=== PATIENT | female | born 2000 | race Two or more races ===

== ENCOUNTER 2018-10-25 12:06 | Emergency (ER) | payer MEDICAID ==
[~2018-10-25] VITALS: Ht 160 cm; Wt 63.6 kg
[2018-10-25] MEDS ORDERED: TETanus/Pertussis (Acell)/Diphther VAC/PF (Tdap-Adult) 0.5ml syringe IM ONE (13:15)
[2018-10-25] MEDS ORDERED: LIDOcaine 1% w/epiNEPHrine 1:200,000 30ml vial IM ONE (13:15)
[2018-10-25] MEDS ORDERED: CEPH-571 PO (14:01)
[2018-10-25 14:08] VITALS: BP 120/84
== END 2018-10-25 14:11 | disposition home or self-care (01) ==
LOC: ER 12:07
DX: L02.31 Cutaneous abscess of buttock (principal); Z79.2 Long term (current) use of antibiotics
CPT/HCPCS: 10060; 90471; 90715; 99283; J3490

== ENCOUNTER 2019-06-22 01:57 | Emergency (ER) | payer MEDICAID ==
[~2019-06-22] VITALS: Ht 162.6 cm; Wt 72.0 kg
[~2019-06-22 01:57] MED LIST: CEPH-571 PO
[2019-06-22 02:04] VITALS: BP 136/72
[2019-06-22] MEDS ORDERED: diphenhydrAMINE 25mg capsule PO ONE (02:15)
[2019-06-22] MEDS ORDERED: acetaminophen 325mg tablet PO ONE (02:15)
== END 2019-06-22 02:26 | disposition home or self-care (01) ==
LOC: ER 01:58
DX: O26.893 Other specified pregnancy related conditions, third trimester (principal); R51 Headache; R09.81 Nasal congestion; R05 Cough; Z79.899 Other long term (current) drug therapy; Z3A.00 Weeks of gestation of pregnancy not specified
CPT/HCPCS: 99283; Q0163

== ENCOUNTER 2021-03-16 10:21 | Emergency (ER) | payer OTHER, MEDICAID ==
[~2021-03-16] VITALS: Ht 162.6 cm; Wt 70.5 kg
[~2021-03-16 10:21] MED LIST changes: +LIDOcaine 1% W/epiNEPHrine 1:100,000 20ml vial ONE
[2021-03-16 10:45] VITALS: BP 107/78
[2021-03-16] MEDS ORDERED: HYDROcodone/acetaminophen 5mg/325mg tablet PO ONE (10:50)
[2021-03-16] MEDS ORDERED: TETanus/Pertussis (Acell)/Diphther VAC/PF (Tdap-Adult) 0.5ml syringe IMVAC ONE (10:50)
[2021-03-16] MEDS ORDERED: LIDOcaine 1.5% w/epinephrine 1:200,000 5ml ampul IJ ONE (10:50)
== END 2021-03-16 12:36 | disposition home or self-care (01) ==
LOC: ER 10:22
DX: S81.811A Laceration without foreign body, right lower leg, initial encounter (principal); Z79.2 Long term (current) use of antibiotics; X58.XXXA Exposure to other specified factors, initial encounter; Y93.89 Activity, other specified; Y92.89 Other specified places as the place of occurrence of the external cause; Y99.8 Other external cause status
CPT/HCPCS: 12002; 73590; 73610; 90471; 90715; 99284

== ENCOUNTER 2021-05-12 18:09 | Emergency (ER) | payer MEDICAID, OTHER ==
[~2021-05-12] VITALS: Ht 162.6 cm; Wt 63.6 kg
[~2021-05-12 18:09] MED LIST changes: -LIDOcaine 1% W/epiNEPHrine 1:100,000 20ml vial ONE
[2021-05-12 18:11] VITALS: BP 148/76
== END 2021-05-12 21:27 | disposition left against medical advice (07) ==
LOC: ER 18:10
DX: S61.211A Laceration without foreign body of left index finger without damage to nail, initial encounter (principal); Z53.21 Procedure and treatment not carried out due to patient leaving prior to being seen by health care provider; X58.XXXA Exposure to other specified factors, initial encounter; Y93.9 Activity, unspecified; Y92.9 Unspecified place or not applicable; Y99.9 Unspecified external cause status

== ENCOUNTER 2021-11-04 19:13 | Emergency (ER) | payer MEDICAID ==
[~2021-11-04] VITALS: Ht 162.6 cm; Wt 68.2 kg
[2021-11-04 19:15] VITALS: BP 117/67
[2021-11-04] MEDS ORDERED: dexamethasone sod phosphate 10mg/ml inj PO STA (19:31)
[2021-11-04] MEDS ORDERED: amoxicillin 250mg capsule PO ONE (19:35)
[2021-11-04] MEDS ORDERED: ibuprofen 200mg tablet PO ONE (19:35)
[2021-11-04] MEDS ORDERED: ibuprofen tablet 400 MG TABLET PO ONE (19:35)
[2021-11-04] MEDS ORDERED: AMOX-101 PO (19:39)
== END 2021-11-04 20:10 | disposition home or self-care (01) ==
LOC: ER 19:14
DX: J02.9 Acute pharyngitis, unspecified (principal); M54.2 Cervicalgia; Z79.899 Other long term (current) drug therapy
CPT/HCPCS: 99284; J1100

== ENCOUNTER 2023-01-12 16:43 | Emergency (ER) | payer MEDICAID ==
[~2023-01-12] VITALS: Ht 162.6 cm; Wt 68.2 kg
[2023-01-12 17:26] LABS: ALANINE AMINOTRANSFERASE 17 U/L (12-78); ALBUMIN 3.5 G/DL (3.4-5.0); ALBUMIN/GLOBULIN RATIO 0.9 (1.1-1.5); ALKALINE PHOSPHATASE 57 IU/L (46-116); ANION GAP 12 (8-16); ASPARTATE AMINO TRANSFERASE 16 U/L (10-37); BILIRUBIN,TOTAL 0.2 MG/DL (0.1-1.0); BLOOD UREA NITROGEN 10 MG/DL (7-18); BUN/CREATININE RATIO 13.7 (10.0-20.0); CALCIUM 8.9 MG/DL (8.5-10.1); CHLORIDE 104 MMOL/L (99-107); CREATININE 0.73 MG/DL (0.40-0.90); GLUCOSE 95 MG/DL (70-104); POTASSIUM 3.5 MMOL/L (3.5-5.1); SODIUM 139 MMOL/L (135-145); TOTAL CARBON DIOXIDE 23.5 MMOL/L (24-32); TOTAL PROTEIN 7.3 G/DL (6.4-8.2); eGFR > 90 ML/MIN
[2023-01-12 17:35] LABS: CLARITY,URINE CLEAR (Clear); COLOR,URINE YELLOW (Yellow); GLUCOSE, URINE NEGATIVE (Neg); KETONES,URINE NEGATIVE (Neg); LEUKOCYTE ESTERASE ,URINE NEGATIVE (Neg); NITRITES, URINE NEGATIVE (Neg); OCCULT BLOOD,URINE NEGATIVE (Neg); PROTEIN,URINE NEGATIVE (Neg); UROBILINOGEN,URINE 0.2 E.U/dL (0.2-1.0)
[2023-01-12 17:36] LABS: UA COLLECTION TYPE CLN CATCH MIDSTREAM; URINE HCG POSITIVE (NEG)
--- NOTE | 2023-01-12 17:38 | NUR ---
Received patient to OF bed #22. Pt ambulated independently to bed. Pt is A&Ox4. Pt denies SI/HI, A/VH. Pt reports her parents live with her and the situation is based on "a lot of frustration." Pt reports her father can be threatening when the argue. Pt also reports that if her parents didn't live with her they would be homeless. Pt has superficial lacerations on left anterior forarm. Reports she has never self harmed before this.
[2023-01-12 17:52] LABS: URINE AMPHETAMINE SCREEN POSITIVE (Neg); URINE BARBITUATE SCREEN NEGATIVE (Neg); URINE BENZODIAZEPINES SCREEN NEGATIVE (Neg); URINE CANNABINOID SCREEN NEGATIVE (Neg); URINE COCAINE SCREEN NEGATIVE (Neg); URINE METHADONE SCREEN NEGATIVE (Neg); URINE OPIATE SCREEN NEGATIVE (Neg); URINE PHENCYCLIDINE SCREEN NEGATIVE (Neg)
--- NOTE | 2023-01-12 17:57 | NUR ---
pt requested a shower, tech informed pt there is no shower, tech offered pt baby wipes and asked pt to change into green scrubs, pt in the bathroom.
--- NOTE | 2023-01-12 18:57 | NUR ---
One to one with the patient and made her aware of the plan for 5150 assessment by [facility] in the AM. Discussed with the patient the positive Amphetamine use and she stated that she had used on the weekend. She was made aware that her test was positive. She reports last menstural period was possibly in September. She is aware that a [employer]PS report would have to be filed. She was tearful and stated that her children meant everything to her. She denies a history of mental health issues and denies that she is suicidal and stated that she wants to live for her kids. She is very cooperative.
[2023-01-12] MEDS ORDERED: NO HOME MEDS (19:08)
[2023-01-12 19:31] LABS: WHITE BLOOD COUNT 7.2 X10'3 (4.5-11.0)
[2023-01-12 19:32] LABS: BASOPHILS % (AUTO) 0.6 % (0-1); EOSINOPHILS # (AUTO) 0.2 X10'3 (0-0.9); EOSINOPHILS % (AUTO) 3.4 % (0-6); HEMATOCRIT 37.7 % (35.0-45.0); HEMOGLOBIN 12.4 g/dl (12.0-16.0); LYMPHOCYTES % (AUTO) 28.3 % (21-51); MEAN CORPUSCULAR HEMOGLOBIN 25.9 PG (27.0-31.0); MEAN CORPUSCULAR VOLUME 78.4 FL (78-98); MEAN PLATELET VOLUME 7.9 FL (7.4-10.4); MONOCYTES # (AUTO) 0.5 X10'3 (0-0.9); MONOCYTES % (AUTO) 7.2 % (2-12); NEUTROPHILS # (AUTO) 4.4 X10'3 (1.8-7.7); NEUTROPHILS % (AUTO) 60.5 % (42-75); PLATELET COUNT 311 X10'3 (140-440)
--- NOTE | 2023-01-12 20:25 | NUR ---
The patient appears to be sleeping
--- NOTE | 2023-01-12 21:00 | NUR ---
PACKET FAXED TO [facility]
--- NOTE | 2023-01-12 21:14 | NUR ---
Report filled with [employer] regarding positive amphetamine and positive test
--- NOTE | 2023-01-12 23:14 | NUR ---
The patient appears to be sleeping
--- NOTE | 2023-01-13 01:18 | NUR ---
The patient appears to be sleeping
--- NOTE | 2023-01-13 03:02 | NUR ---
The patient appears to be sleeping
--- NOTE | 2023-01-13 05:10 | NUR ---
The patient appeared to have slept well during the night
--- NOTE | 2023-01-13 06:26 | NUR ---
The patient appears to be sleeping
--- NOTE | 2023-01-13 08:14 | NUR ---
The patient sitting up and eating breakfast.
--- NOTE | 2023-01-13 08:53 | NUR ---
[facility] at the bedside assessing the patient.
[2023-01-13 09:41] VITALS: BP 118/82
--- NOTE | 2023-01-15 11:25 | NUR ---
Received order for consult. Patient discharged. I called to follow up with patient. Patient is interested in resources for substance use. Patient would like outpatient resources. I gave patient [facility] information and talked to her about [facility] outpatient program. Patient has my number to call me with any questions.
== END 2023-01-13 09:47 | disposition home or self-care (01) ==
LOC: ER 16:44
DX: Z34.90 Encounter for supervision of normal pregnancy, unspecified, unspecified trimester (principal); Z20.822 Contact with and (suspected) exposure to COVID-19; R45.88 Nonsuicidal self-harm; F15.20 Other stimulant dependence, uncomplicated
CPT/HCPCS: 36415; 80053; 80305; 81003; 81025; 84443; 85025; 87811; 99285

== ENCOUNTER 2023-09-07 12:14 | Emergency (ER) | payer MEDICAID ==
[~2023-09-07] VITALS: Ht 162.6 cm; Wt 86.4 kg
[~2023-09-07 12:14] MED LIST changes: -CEPH-571 PO; +NO HOME MEDS
[2023-09-07 12:19] VITALS: BP 115/63; PULSE 91; RESP 18; TEMP 97.9; O2SAT 97
[2023-09-07] MEDS: dexamethasone sod phosphate 10mg/ml inj PO STA (13:38)
[2023-09-07 13:59] LABS: STREP A SCREEN NEGATIVE (Neg)
[2023-09-07] MEDS ORDERED: DIPH-518 PO (14:13)
[2023-09-07] MEDS ORDERED: LIDO20SO16 PO (14:13)
== END 2023-09-07 14:19 | disposition home or self-care (01) ==
LOC: ER 12:14
DX: B08.5 Enteroviral vesicular pharyngitis (principal); Z79.899 Other long term (current) drug therapy
CPT/HCPCS: 87081; 87880; 99283; J1100

== ENCOUNTER 2023-10-29 15:08 | Emergency (ER) | payer MEDICAID ==
[~2023-10-29] VITALS: Ht 162.6 cm; Wt 74.8 kg
[~2023-10-29 15:08] MED LIST changes: +DIPH-518 PO; +LIDO20SO16 PO
[2023-10-29 15:33] VITALS: BP 122/74; PULSE 99; RESP 18; TEMP 97; O2SAT 99
[2023-10-29] MEDS ORDERED: AMOX-100 PO (16:40)
[2023-10-29] MEDS ORDERED: PSEU120T56 PO (16:40)
[2023-10-29] MEDS ORDERED: FLUT16SP2 BOTHNARES (16:40)
== END 2023-10-29 16:52 | disposition home or self-care (01) ==
LOC: ER 15:09
DX: J03.90 Acute tonsillitis, unspecified (principal); H69.91 Unspecified Eustachian tube disorder, right ear; Z79.899 Other long term (current) drug therapy
CPT/HCPCS: 99283